=== PATIENT | male | born 1985 | race African-American/Black ===

== ENCOUNTER 2019-10-18 12:00 | Emergency (ER) | payer BC ==
[~2019-10-18] VITALS: Ht 190.5 cm; Wt 145.1 kg
[2019-10-18 12:02] VITALS: BP 141/90
--- NOTE | 2019-10-18 12:07 | NUR ---
Pt w/c assisted to bed 4.
--- NOTE | 2019-10-18 12:15 | NUR ---
34/M presents to ED with complaints of right foot pain since Monday. Patient states he started having pain to right lateral foot after taking off his work boots. Patient states he woke up Monday with worsening pain and unable to walk d/t pain. Patient states he went to urgent care yesterday and had x-rays performed. Patient states he was referred to ED to have further work up, MRI to rule out any damage to ligaments. Pt unable to bear weight at this time. Pain is 9/10, aching, continuous, non radiating. CMS intact. Denies fever or chills. Swelling noted to right lateral foot. No discoloration noted. No erythema. Patient denies fever.
--- NOTE | 2019-10-18 13:08 | NUR ---
valerie torres at bedside reevaluating pt.
[2019-10-18 13:21] VITALS: BP 141/90
--- NOTE | 2019-10-18 13:22 | NUR ---
Patient discharged with v/s stable. Written and verbal after care instructions given and explained regarding foot sprain. Patient alert, oriented and verbalized understanding of instructions. Ambulatory with steady gait. All questions addressed prior to discharge. ID band removed. Patient advised to follow up with PMD. Rx of tramadol and flexeril given. Patient educated on indication of medication including possible reaction and side effects. Opportunity to ask questions provided and answered.Off for work given.
== END 2019-10-18 13:22 | disposition home or self-care (01) ==
LOC: MED 12:00
DX: M79.671 Pain in right foot (principal); R03.0 Elevated blood-pressure reading, without diagnosis of hypertension; Z98.890 Other specified postprocedural states
CPT/HCPCS: 73630; 99283; Q0092

== ENCOUNTER 2020-06-20 07:58 | Emergency (ER) | payer BC ==
[~2020-06-20] VITALS: Ht 188 cm; Wt 149.7 kg
[2020-06-20 08:03] VITALS: BP 198/126
--- NOTE | 2020-06-20 08:13 | NUR ---
PT AMBULATED TO BED 06.
--- NOTE | 2020-06-20 08:17 | NUR ---
DR MOROCHO AT BEDSIDE EXAMINING PATIENT
[2020-06-20] MEDS ORDERED: KETOROLAC 30 MG/ML VIAL IM ONE (08:25)
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
--- NOTE | 2020-06-20 08:44 | NUR ---
BP 164/94, HR 80. ERMD MADE AWARE
--- NOTE | 2020-06-20 08:44 | NUR ---
PATIENT TAKEN TO XRAY VIA WHEELCHAIR
[2020-06-20] MEDS ORDERED: IBUP-2809 PO (09:51)
[2020-06-20 10:26] VITALS: BP 198/126
--- NOTE | 2020-06-20 10:27 | NUR ---
Patient discharged with v/s stable. Written and verbal after care instructions given and explained. Patient alert, oriented and verbalized understanding of instructions. Ambulatory with steady gait. All questions addressed prior to discharge. ID band removed. Patient advised to follow up with PMD. Rx of ibuprofen 600mg tid prn pain given. Patient educated on indication of medication including possible reaction and side effects. Opportunity to ask questions provided and answered.
== END 2020-06-20 10:27 | disposition home or self-care (01) ==
LOC: MED 07:58
DX: M54.6 Pain in thoracic spine (principal); X50.0XXA Overexertion from strenuous movement or load, initial encounter; Y93.89 Activity, other specified; Y92.89 Other specified places as the place of occurrence of the external cause; Y99.8 Other external cause status
CPT/HCPCS: 71046; 96372; 99283; J1885

== ENCOUNTER 2022-11-26 20:35 | Emergency (ER) | payer BC ==
[~2022-11-26] VITALS: Ht 190.5 cm; Wt 149.7 kg
[~2022-11-26 20:35] MED LIST: IBUP-2809 PO
[2022-11-26 20:57] VITALS: BP 166/107; PULSE 82; RESP 16; TEMP 97.4; O2SAT 100
[2022-11-26] MEDS ORDERED: CYCLOBENZAPRINE 10 MG TAB PO ONE (21:20)
[2022-11-26] MEDS ORDERED: KETOROLAC 30 MG/ML VIAL IM ONE (21:20)
[2022-11-26] MEDS ORDERED: LIDOCAINE 5% 1 EA PATCH TP ONE (21:55)
[2022-11-26 22:05] LABS: APPEARANCE,URINE CLEAR (CLEAR); BILIRUBIN,URINE NEGATIVE (NEGATIVE); BLOOD, URINE NEGATIVE (NEGATIVE); COLOR,URINE YELLOW (YELLOW); LEUKOCYTE ESTERASE ,URINE NEGATIVE (NEGATIVE); NITRITE, URINE NEGATIVE (NEGATIVE); PROTEIN,URINE NEGATIVE (NEGATIVE); UGLUCOSE NEGATIVE (NEGATIVE); UROBILINOGEN,URINE 0.2 EU/dL (0.2 - 1)
[2022-11-26] MEDS ORDERED: NAPR-1717 PO (22:43)
[2022-11-26 22:52] VITALS: BP 143/86; PULSE 82; RESP 16; TEMP 97.4; O2SAT 100
[2022-11-27] MEDS ORDERED: LIDOCAINE 5% 1 EA PATCH TP SCH (09:00)
== END 2022-11-26 22:52 | disposition home or self-care (01) ==
LOC: MED 20:35
DX: M54.50 Low back pain, unspecified (principal); R10.9 Unspecified abdominal pain; Z79.899 Other long term (current) drug therapy
CPT/HCPCS: 81003; 96372; 99283; J1885